=== PATIENT | female | born 1945 | race Caucasian/White ===

== ENCOUNTER 2021-07-10 16:35 | Emergency (ER) | payer MEDICARE, OTHER ==
--- NOTE | 2021-07-10 17:23 | CR ---
[id number] RAD/RAD Chest PA or AP 1V EXAM: SINGLE VIEW CHEST. INDICATION: NEAR SYNCOPE COMPARISON: CORRELATION IS MADE WITH THE CAT SCAN OF FEBRUARY 08, 2016 FINDINGS: The lungs are clear but hyperaerated Cardiac surgical changes are seen The defibrillator is also seen IMPRESSION: NO PNEUMONIA OR EDEMA Frankie Hopkins MD 07/10/21 [id number] Thank you for allowing us to participate in the care of your patient.
[2021-07-10 17:32] VITALS: BP 115/52; PULSE 59
--- NOTE | 2021-07-10 17:33 | EDM.PDOC ---
ED HPI GENERAL MEDICAL PROBLEM - General Chief Complaint: General Stated Complaint: DIZZINESS Time Seen by Provider: 07/10/21 17:00 Source of Information: Reports: Patient History Limitations: Reports: No Limitations - History of Present Illness INITIAL COMMENTS - FREE TEXT/NARRATIVE: 75 YO WF PRESENTS TO ER AFTER EPISODE OF NEAR SYNCOPE WHICH OCCURRED EARLIER TODAY. PT REPORTS EPISODE LASTED FOR APPROXIMATELY 15 MINUTES. PT DENIES ANY CHEST PAIN, SHORTNESS OF BREATH, HEADACHE, NO NAUSEA/VOMITING OR DIAPHORESIS. PT REPORTS SHE HAS AN EVENT MONITOR AT HOME BUT FAR SHE COULD TELL, HAD NO EVENTS PER AGENCY [facility]IER OFFICE IN [place]. PT REPORTS RECENT VISIT TO [facility] LAST WEEK, DR OVALLES WHO PERFORMED AN ECHOCARDIOGRAM AND STARTED HER ON SOTOLOL 80MG QD. PT STATES SHE HAD A SYNCOPAL EPISODE ON 05/29/2021 AND WAS SEEN IN [facility] AND HAD A HEAD CT AND LOW BACK XRAY AT THAT TIME WAS TOLD TO FOLLOW UP WITH CARDIOLOGY PROMPTING HER APPOINTMENT LAST WEEK WITH DR OVALLES. PT DENIES ANY FACIAL DROOP, NO ATAXIA, NO SLURRED SPEECH. PT DENIES ANY WEAKNESS OR NUMBNESS. Onset: Today Location: Reports: Generalized Severity: Mild Improves with: Reports: None Worsens with: Reports: None Context: Reports: Activity Associated Symptoms: Denies: Chest Pain, Diaphoresis, Fever/Chills, Headaches, Nausea/Vomiting, Shortness of Breath, Syncope, Weakness - Related Data Allergies Allergy/AdvReac Type Severity Reaction Status Date / Time sulfamethoxazole Allergy Hives Verified 07/10/21 17:22 [From Bactrim] trimethoprim [From Bactrim] Allergy Hives Verified 07/10/21 17:22 codeine AdvReac Other Verified 07/10/21 17:22 Home Meds: Home Meds RX: Aspirin [Ecotrin EC] 81 mg PO DAILY 12/30/14 [History] RX: Furosemide [Lasix] 40 mg PO DAILY 12/30/14 [History] RX: Omeprazole [Prilosec] 40 mg PO BEDTIME 12/30/14 [History] RX: Warfarin [Coumadin] 5 mg PO ASDIRECTED 12/30/14 [History] RX: atorvaSTATin [Lipitor] 10 mg PO BEDTIME 12/30/14 [History] RX: carvediloL [Coreg] 12.5 mg PO BID 12/30/14 [History] RX: metFORMIN [Glucophage XR] 500 mg PO BEDTIME 12/30/14 [History] RX: metOLazone [Zaroxolyn] 2.5 mg PO Q3D 12/30/14 [History] RX: Potassium Chloride 20 meq PO BID #0 01/11/15 [Rx] RX: Candesartan Cilexetil [Atacand] 8 mg PO BID 02/08/16 [History] RX: Magnesium Oxide [Magnesium] 400 mg PO BEDTIME 02/08/16 [History] RX: Azithromycin [Z-Tl] 250 mg PO ASDIRECTED #1 dosepk 02/09/16 [Rx] Past Medical History HEENT History: Reports: Impaired Vision, Other (See Below) Other HEENT History: retinal tear Cardiovascular History: Reports: Afib, Blood Clots/VTE/DVT, Heart Failure, Heart Valve Replacement, Hypertension, Other (See Below) Other Cardiovascular History: Poor ejection fraction. Respiratory History: Reports: PE, Sleep Apnea Gastrointestinal History: Reports: GERD Genitourinary History: Reports: Pyelonephritis, Other (See Below) Other Genitourinary History: prolapsed bladder [employer] SPECIALIST History: Reports: , Spontaneous Musculoskeletal History: Reports: Back Pain, Chronic, Osteoarthritis Endocrine/Metabolic History: Reports: Diabetes, Type II - Past Surgical History Cardiovascular Surgical History: Reports: AICD, Other (See Below) Female Surgical History: Reports: Hysterectomy, Other (See Below) ED ROS GENERAL - Review of Systems Review Of Systems: See Below Constitutional: Reports: No Symptoms HEENT: Reports: No Symptoms Respiratory: Reports: No Symptoms Cardiovascular: Reports: Lightheadedness Endocrine: Reports: No Symptoms GI/Abdominal: Reports: No Symptoms : Reports: No Symptoms Musculoskeletal: Reports: No Symptoms Skin: Reports: No Symptoms Neurological: Reports: Dizziness. Denies: Confusion, Headache, Numbness, Pre- Existing Deficit, Trouble Speaking, Weakness, Change in Speech, Gait Disturbance Psychiatric: Reports: No Symptoms Hematologic/Lymphatic: Reports: No Symptoms Immunologic: Reports: No Symptoms ED EXAM, GENERAL - Physical Exam Exam: See Below Exam Limited By: No Limitations General Appearance: Alert, WD/WN, No Apparent Distress Eye Exam: Bilateral Eye: EOMI, PERRL Head: Atraumatic, Normocephalic Neck: Normal Inspection, Supple, Non-Tender, Full Range of Motion Respiratory/Chest: No Respiratory Distress, Lungs Clear, Normal Breath Sounds, No Accessory Muscle Use, Chest Non-Tender Cardiovascular: Normal Peripheral Pulses, Regular Rate, Rhythm, No Edema, No Gallop, No JVD, No Murmur, No Rub, Bradycardia GI/Abdominal: Normal Bowel Sounds, Soft, Non-Tender, No Organomegaly, No Distention, No Abnormal Bruit, No Mass Back Exam: Normal Inspection, Full Range of Motion, NT Extremities: Normal Inspection, Normal Range of Motion, Non-Tender, Normal Capillary Refill, No Pedal Edema Neurological: Alert, Oriented, CN II-XII Intact, Normal Cognition, Normal Gait, Normal Reflexes, No Motor/Sensory Deficits Psychiatric: Normal Affect, Normal Mood Skin Exam: Warm, Dry, Intact, Normal Color, No Rash #1 Interpretation EKG Date: 07/10/21 Time: 16:48 Rhythm: A-Fib Rate (Beats/Min): 55 [place]: Normal P-Wave: Absent QRS: Normal ST-T: Normal QT: Prolonged Comparison: NA - No Prior EKG Course - Vital Signs Last Recorded V/S: Last Vital Signs Temp 96.5 F L 07/10/21 16:45 Pulse 59 L 07/10/21 17:30 Resp 14 07/10/21 17:30 BP 115/52 L 07/10/21 17:30 Pulse Ox 94 L 07/10/21 17:30 Orthostatic Blood Pressure [ 104/58 Standing] Orthostatic Blood Pressure [ 111/53 Sitting] Orthostatic Blood Pressure [ 115/50 Supine] - Orders/Labs/Meds Orders: Active Orders 24 hr Category Date Time Status EKG Documentation Completion [RC] ASDIRECTED Care 07/10/21 17:01 Active Orthostatic Vital Signs [RC] ASDIRECTED Care 07/10/21 17:00 Active UA RFX MAURICIO AND CULT IF INDIC [URIN] Stat Lab 07/10/21 16:37 Results EKG 12 Lead [EK] Stat Ther 07/10/21 17:00 Ordered Labs: Laboratory Tests 07/10/21 07/10/21 07/10/21 Range/Units 16:37 16:50 16:50 WBC 5.34 (5.00-10.00) 10^3/uL RBC 3.97 (3.80-5.50) 10^6/uL Hgb 12.1 (12.0-16.0) g/dL Hct 36.5 L (37.0-47.0) % MCV 91.9 (82.0-92.0) fL MCH 30.5 (27.0-31.0) pg MCHC 33.2 (32.0-36.0) g/dL RDW 13.9 (11.5-14.5) % Plt Count 175 (150-400) 10^3/uL MPV 10.3 (7.4-10.4) fL Immature Gran % (Auto) 0.2 (0.0-5.0) % Neut % (Auto) 69.2 (50.0-70.0) % Lymph % (Auto) 21.0 (20.0-40.0) % [place] % (Auto) 5.6 (2.0-8.0) % Eos % (Auto) 3.6 H (1.0-3.0) % Baso % (Auto) 0.4 (0.0-1.0) % Neut # (Auto) 3.70 (2.50-7.00) 10^3/uL Lymph # (Auto) 1.12 (1.00-4.00) 10^3/uL [place] # (Auto) 0.30 (0.10-0.80) 10^3/uL Eos # (Auto) 0.19 (0.10-0.30) 10^3/uL Baso # (Auto) 0.02 (0.00-0.10) 10^3/uL Immature Gran # (Auto) 0.01 (0.00-0.50) 10^3/uL PT (9.2-11.2) SEC INR (0.9-1.1) Sodium 140 (136-145) mmol/L Potassium 4.0 (3.5-5.1) mmol/L Chloride 101 (98-107) mmol/L Carbon Dioxide 31.0 (21.0-32.0) mmol/L Anion Gap 12.0 (5-15) mmol/L BUN 49 H (7-18) mg/dL Creatinine 1.65 H (0.51-1.17) mg/dL Est Cr Clr Drug Dosing 25.97 mL/min Estimated GFR (MDRD) 30 mL/min Glucose 118 (70-140) mg/dL Calcium 9.3 (8.7-10.3) mg/dL Total Bilirubin 0.8 (0.2-1.0) mg/dL AST 14 L (15-37) U/L ALT 28 (14-63) U/L Alkaline Phosphatase 52 (46-116) U/L Troponin I High Sens 10.000 (0-51.000) pg/mL Total Protein 7.1 (6.4-8.2) g/dL Albumin 3.61 (3.40-5.00) g/dL Urine Color Yellow (YELLOW) Urine Appearance Clear (CLEAR) Urine pH 7.0 (5.0-9.0) Ur Specific [place] 1.015 (1.005-1.030) Urine Protein Negative (NEGATIVE) mg/dL Urine Glucose (UA) Negative (NEGATIVE) mg/dL Urine Ketones Negative (NEGATIVE) mg/dL Urine Occult Blood Negative (NEGATIVE) Urine Nitrite Negative (NEGATIVE) Urine Bilirubin Negative (NEGATIVE) Urine Urobilinogen 0.2 (0.2-1.0) E.U./dL Ur Leukocyte Esterase Negative (NEGATIVE) 07/10/21 Range/Units 17:24 WBC (5.00-10.00) 10^3/uL RBC (3.80-5.50) 10^6/uL Hgb (12.0-16.0) g/dL Hct (37.0-47.0) % MCV (82.0-92.0) fL MCH (27.0-31.0) pg MCHC (32.0-36.0) g/dL RDW (11.5-14.5) % Plt Count (150-400) 10^3/uL MPV (7.4-10.4) fL Immature Gran % (Auto) (0.0-5.0) % Neut % (Auto) (50.0-70.0) % Lymph % (Auto) (20.0-40.0) % [place] % (Auto) (2.0-8.0) % Eos % (Auto) (1.0-3.0) % Baso % (Auto) (0.0-1.0) % Neut # (Auto) (2.50-7.00) 10^3/uL Lymph # (Auto) (1.00-4.00) 10^3/uL [place] # (Auto) (0.10-0.80) 10^3/uL Eos # (Auto) (0.10-0.30) 10^3/uL Baso # (Auto) (0.00-0.10) 10^3/uL Immature Gran # (Auto) (0.00-0.50) 10^3/uL PT 22.0 H (9.2-11.2) SEC INR 2.2 H (0.9-1.1) Sodium (136-145) mmol/L Potassium (3.5-5.1) mmol/L Chloride (98-107) mmol/L Carbon Dioxide (21.0-32.0) mmol/L Anion Gap (5-15) mmol/L BUN (7-18) mg/dL Creatinine (0.51-1.17) mg/dL Est Cr Clr Drug Dosing mL/min Estimated GFR (MDRD) mL/min Glucose (70-140) mg/dL Calcium (8.7-10.3) mg/dL Total Bilirubin (0.2-1.0) mg/dL AST (15-37) U/L ALT (14-63) U/L Alkaline Phosphatase (46-116) U/L Troponin I High Sens (0-51.000) pg/mL Total Protein (6.4-8.2) g/dL Albumin (3.40-5.00) g/dL Urine Color (YELLOW) Urine Appearance (CLEAR) Urine pH (5.0-9.0) Ur Specific [place] (1.005-1.030) Urine Protein (NEGATIVE) mg/dL Urine Glucose (UA) (NEGATIVE) mg/dL Urine Ketones (NEGATIVE) mg/dL Urine Occult Blood (NEGATIVE) Urine Nitrite (NEGATIVE) Urine Bilirubin (NEGATIVE) Urine Urobilinogen (0.2-1.0) E.U./dL Ur Leukocyte Esterase (NEGATIVE) - Radiology Interpretation Free Text/Narrative:: CXR-NAD Departure - Departure Time of Disposition: 18:15 Disposition: Home, Self-Care 01 Condition: Good Clinical Impression: Near syncope, Afib, Atrial fibrillation, CKD (chronic kidney disease) - Discharge Information Instructions: Near-Syncope, [id number] Referrals: Tasha Peters MD [Physician] - Forms: ED Department Discharge Additional Instructions: 1. DISCHARGE HOME 2. FOLLOW UP WITH DR TASHA PETERS THIS WEEK SCHEDULED- APPOINTMENT FOR 07/14/21. 3. CONTINUE TO MONITOR BLOOD PRESSURE AND UPLOAD RHYTHM STRIPS TO CARDIOLOGY IF EVENT OCCURS AGAIN IN THE FUTURE 4. RETURN TO ER FOR WORSENING SYMPTOMS Sepsis Event Note (ED) - Evaluation Sepsis Screening Result: No Definite Risk - Focused Exam Vital Signs: Vital Signs Temp Pulse Resp BP Pulse Ox 07/10/21 17:30 59 L 14 115/52 L 94 L 07/10/21 17:15 52 L 19 124/60 94 L 07/10/21 17:00 54 L 16 119/52 L 94 L 07/10/21 16:45 96.5 F L 57 L 14 119/57 L 95 - My Orders Last 24 Hours: My Active Orders 07/10/21 16:37 UA RFX MAURICIO AND CULT IF INDIC [URIN] Stat 07/10/21 17:00 Orthostatic Vital Signs [RC] ASDIRECTED EKG 12 Lead [EK] Stat 07/10/21 17:01 EKG Documentation Completion [RC] ASDIRECTED - Assessment/Plan Last 24 Hours: My Active Orders 07/10/21 16:37 UA RFX MAURICIO AND CULT IF INDIC [URIN] Stat 07/10/21 17:00 Orthostatic Vital Signs [RC] ASDIRECTED EKG 12 Lead [EK] Stat 07/10/21 17:01 EKG Documentation Completion [RC] ASDIRECTED Assessment:: 1. NEAR SYNCOPE 2. CHRONIC KIDNEY DISEASE Plan: 1. DISCHARGE HOME- DISCUSSED CASE WITH DR JULIEN HUERTA WHO WAS AGREEABLE TO ADMIT FOR OBSERVATION. PT STATES SHE FEELS FINE AND WOULD PREFER TO FOLLOW UP WITH DR TASHA PETERS THIS WEEK SHE HAS AN APPOINTMENT FOR 07/14/21. 2. CONTINUE TO MONITOR BLOOD PRESSURE AND UPLOAD RHYTHM STRIPS TO CARDIOLOGY IF EVENT OCCURS AGAIN IN THE FUTURE 3. RETURN TO ER FOR WORSENING SYMPTOMS
== END 2021-07-10 18:25 | disposition home or self-care (01) ==
LOC: KA.ED 16:35
DX: R55 Syncope and collapse (principal); I48.91 Unspecified atrial fibrillation; E11.22 Type 2 diabetes mellitus with diabetic chronic kidney disease; I13.0 Hypertensive heart and chronic kidney disease with heart failure and stage 1 through stage 4 chronic kidney disease, or unspecified chronic kidney disease; N18.9 Chronic kidney disease, unspecified; I50.9 Heart failure, unspecified; K21.9 Gastro-esophageal reflux disease without esophagitis; Z86.718 Personal history of other venous thrombosis and embolism; Z88.5 Allergy status to narcotic agent; Z88.1 Allergy status to other antibiotic agents; Z79.01 Long term (current) use of anticoagulants; Z79.82 Long term (current) use of aspirin; Z79.899 Other long term (current) drug therapy; Z79.84 Long term (current) use of oral hypoglycemic drugs
CPT/HCPCS: 36415; 71045; 80053; 81003; 84484; 85025; 85610; 93005; 99284; 99284-25

== ENCOUNTER 2022-09-04 16:55 | Emergency (ER) | payer MEDICARE, OTHER | END 2022-09-04 19:25 | LOC: KA.ED 16:55 | DX: R42 Dizziness and giddiness (principal); R51.9 Headache, unspecified; M62.838 Other muscle spasm; W01.198A Fall on same level from slipping, tripping and stumbling with subsequent striking against other object, initial encounter | CPT/HCPCS: 70450; 72125; 99284 ==